=== PATIENT | female | born 1930 | race Caucasian/White ===

== ENCOUNTER 2016-11-28 10:40 | Day surgery (SDC) | payer MEDICARE ==
--- NOTE | ~2016-11-28 | EGD ---
EGD REPORT [facility] [address] [place] [address] NAME: LEIDY BARILLAS : [birth year] STATUS : REG [facility]#: [id number] AGE: 86 ADM/REG DATE : 11/28/16 MR#: [id number] REPORT SERV DATE: 11/28/16 DICTATED BY: ANDREW RIOS DATE: 11/28/16 REPORT STATUS : Draft TRANSCRIBED BY: [employer] DATE: 11/28/16 [facility] Patient Name: Leidy Barillas Date of : 1930 Attending MD: ANDREW RIOS, Procedure Date No Time: 11/28/2016 Procedure: Upper EUS Indications: Suspected chronic pancreatitis, Epigastric abdominal pain, Weight loss Referring MD: Judie Diehl Complications: No immediate complications. Estimated blood loss: None. Procedure: Pre-Anesthesia Assessment: - ASA Grade Assessment: III - A patient with severe systemic disease. After obtaining informed consent, the endoscope was passed under direct vision. Throughout the procedure, the patient's blood pressure, pulse, and oxygen saturations were monitored continuously. The GIF [id number] was introduced through the mouth, and advanced to the second part of duodenum. The Endoscope was introduced through the mouth, and advanced to the second part of duodenum. Findings: Endoscopic Finding : The examined esophagus was endoscopically normal. One non-bleeding cratered gastric ulcer with no stigmata of bleeding was found in the gastric antrum. The lesion was 8 mm in largest dimension. Biopsies were taken with a cold forceps for histology. Verification of patient identification for the specimen was done. Estimated blood loss was minimal. Patchy moderate inflammation characterized by erythema was found in the entire examined stomach. Biopsies were taken with a cold forceps for histology. Verification of patient identification for the specimen was done. Estimated blood loss was minimal. The examined duodenum was endoscopically normal. Endosonographic Finding : There was no sign of significant endosonographic abnormality in the entire pancreas. The pancreas was well visualized, no pathologic lymphadenopathy, no masses, no cysts, no calcifications, the pancreatic duct was well visualized from ampulla to tail, the pancreatic duct was regular in contour. There was no sign of significant endosonographic abnormality in the common bile duct. Moderate hyperechoic material consistent with sludge was visualized EGD REPORT [facility] [address] [place] [place]. [address] NAME: LEIDY BARILLAS : 34 [place]US [place] [facility] [place] [id number] AGE: 86 ADM/REG DATE : 11/28/16 MR#: [id number] REPORT SERV DATE: 11/28/16 DICTATED BY: ANDREW RIOS DATE: 11/28/16 REPORT STATUS : Draft TRANSCRIBED BY: [employer] DATE: 11/28/16 endosonographically in the gallbladder body. No lymphadenopathy seen. There was no sign of significant endosonographic abnormality in the examined duodenum. Endosonographic images of the stomach were unremarkable. There was no sign of significant endosonographic abnormality in the esophagus. Impression: - Normal esophagus. - Gastric ulcer with clean base. Biopsied. - Gastritis. Biopsied. - Normal examined duodenum. - There was no sign of significant pathology in the entire pancreas. - There was no sign of significant pathology in the common bile duct. - Hyperechoic material consistent with sludge was visualized endosonographically in the gallbladder body. - There was no sign of significant pathology in the examined duodenum. - Endosonographic images of the stomach were unremarkable. - There was no sign of significant pathology in the esophagus. Recommendation: - Return to previous diet. - Await path results. - Continue present medications. - Use Prilosec (omeprazole) 40 mg PO daily. Procedure Code(s): --- Professional --- 76028, Esophagogastroduodenoscopy, flexible, transoral; with endoscopic ultrasound examination, including the esophagus, stomach, and either the duodenum or a surgically altered stomach where the jejunum is examined distal to the anastomosis Diagnosis Code(s): --- Professional --- K25.9, Gastric ulcer, unspecified as acute or chronic, without hemorrhage or perforation K29.70, Gastritis, unspecified, without bleeding K83.8, Other specified diseases of biliary tract R10.13, Epigastric pain R63.4, Abnormal weight loss CPT copyright 2013 [employer]. All rights reserved. EGD REPORT [facility] [address] [place], [place] [address]. [address] NAME: LEIDY BARILLAS : [birth year] [place]US : [place] [facility] [place]#: [id number] AGE: 86 ADM/REG DATE : 11/28/16 MR#: [id number] REPORT SERV DATE: 11/28/16 DICTATED BY: ANDREW RIOS DATE: 11/28/16 REPORT STATUS : Draft TRANSCRIBED BY: [employer] DATE: 11/28/16 The codes documented in this report are preliminary and upon medical records coder review may be revised to meet current compliance requirements. ANDREW RIOS, 11/28/2016 12:46 PM Number of Addenda: 0 Note Initiated On: 11/28/2016 12:09 PM Scope Withdrawal Time 0 hours 0 minutes [address] [place] [id number]
[~2016-11-28 10:40] MED LIST: ACET500CAP PO; ASAB PO; BYSTOLIC5 MG PO; CADUET10 MG/40 M PO; CALCIUM; CARDU2 PO; CARDURA8 MG PO; CRESTOR20 MG PO; DIOVAN HCT320 MG/25 PO; FDGARD PO; FERROUS SULF325 M1 PO; FISH-EPA1000 MG PO; IMDUR60 PO; IRON; MELATIN PO; MULTIPLE VIT PO; NEUR300 PO; NEUR600 PO; NORV10 PO; OS500+D PO; PEP20 PO; PROMAR OR; SPIRO25 PO; VIT D; VITAMIN D1000 UNI1 PO; VITAMIN D2000 UNIT PO; ZETIA PO; ZOFRAN4 PO
== END 2016-11-28 23:59 | disposition home or self-care (01) ==
LOC: DMU 10:40
PROVIDERS: Internal Medicine Gastroenterology
PROC: 0DB68ZX Excision of Stomach, Via Natural or Artificial Opening Endoscopic, Diagnostic (ICD-10-PCS; 2016-11-28)
PROC: 0DJ08ZZ Inspection of Upper Intestinal Tract, Via Natural or Artificial Opening Endoscopic (ICD-10-PCS; principal; 2016-11-28 13:30)
DX: E78.5 Hyperlipidemia, unspecified (principal); I10 Essential (primary) hypertension; K21.9 Gastro-esophageal reflux disease without esophagitis; Z88.5 Allergy status to narcotic agent; I73.9 Peripheral vascular disease, unspecified; Z79.82 Long term (current) use of aspirin; Z79.899 Other long term (current) drug therapy; E11.40 Type 2 diabetes mellitus with diabetic neuropathy, unspecified; Z96.1 Presence of intraocular lens; E78.00 Pure hypercholesterolemia, unspecified; M19.90 Unspecified osteoarthritis, unspecified site; Z90.710 Acquired absence of both cervix and uterus; Z98.890 Other specified postprocedural states; Z98.41 Cataract extraction status, right eye; Z98.42 Cataract extraction status, left eye
CPT/HCPCS: 82962; 88305; 88342; C1725; J0360